=== PATIENT | male | born 1995 | race African-American/Black ===

== ENCOUNTER 2019-05-31 12:33 | Emergency (ER) | payer SELFPAY ==
--- NOTE | ~2019-05-31 | XR_ITS ---
EXAMINATION: XR hand RT min 3V DATE: 05/31/2019 13:09 INDICATION: Right hand pain and swelling. TECHNIQUE: 4 views of right hand were obtained. COMPARISON: None. FINDINGS: Bone alignment is normal. No fracture. There is mild osteoarthritis of fifth proximal inter phalangeal joint and second-fifth distal interphalangeal joints. IMPRESSION: 1. Mild polyarticular osteoarthritis. Reviewed, dictated and finalized at location A.
[2019-05-31 12:38] VITALS: BP 101/68; PULSE 63; RESP 18; TEMP 36.8; O2SAT 100
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
== END 2019-05-31 13:36 | disposition home or self-care (01) ==
PROVIDERS: Emergency Provider Nurse Practitioner Family
DX: M15.9 Polyosteoarthritis, unspecified (principal)
CPT/HCPCS: 73130; 99213; G0463

== ENCOUNTER 2019-08-09 12:47 | Emergency (ER) | payer SELFPAY ==
[2019-08-09 13:25] VITALS: BP 101/59; PULSE 69; RESP 20; TEMP 36.7; O2SAT 100
--- NOTE | 2019-08-09 13:53 | ED.GENADULT ---
HPI - General Adult General Chief complaint: Nausea/Vomiting/Diarrhea Stated complaint: vomiting,diarrhea Time Seen by Provider: 08/09/19 13:54 Source: patient and RN notes reviewed Mode of arrival: ambulatory Limitations: no limitations History of Present Illness HPI narrative: This is a 24 years old male presented office for a return to work note. He was sick with nauseous and diarrhea 2 days ago, he is not sure if he ate something wrong because he cannot came out from nowhere. So he called off and he can go back until he got a work note. Currently he is feeling fine; denies any other symptoms and he wants to go back to work. Related Data Home Medications Medication Instructions Recorded Confirmed No Home Medications 05/31/19 05/31/19 Allergies Allergy/AdvReac Type Severity Reaction Status Date / Time No Known Allergies Allergy Unknown Verified 02/16/19 19:00 Review of Systems Review of Systems: Narrative: CONSTITUTIONAL: Denies fever, chills, sweats. EYES: Denies visual changes ENT: Denies rhinorrhea, congestion, sore throat, otalgia. CARDIOVASCULAR: Denies chest pain, palpitation, edema. RESPIRATORY: Denies dyspnea, wheezing, cough GASTROINTESTINAL: Denies abdominal pain, nausea, vomiting, diarrhea. GENITOURINARY: Denies urinary symptoms or discharge SKIN: Denies rash MUSCULOSKELETAL: Reports chronic lower back pain NEUROLOGIC: Denies lightheaded PMFSH Family History Family History Other Diabetes mellitus Hypertension Social History Social History Smoking status: Never smoker Alcohol intake: never Gender identity (if verbalized by the patient): Male Comments At time of signature, I agree with nursing past medical, surgical, social and family history. There is no relevant family history pertinent to the presenting complaint. Exam Narrative: Exam Narrative: GENERAL: This is a well-nourished, well-developed patient, in no apparent distress. EYES: PERRL. Sclera clear/white. Vision is grossly intact. EARS: External ears normal, auditory canals clear and without drainage, TMs normal without perforation. Hearing grossly intact. NOSE: External nose normal with no obvious nasal discharge, nares without redness, no rhinorrhea. THROAT: Mucous membranes moist, posterior pharynx clear. NECK: Neck supple, non-tender without lymphadenopathy, masses or thyromegaly. CARDIOVASCULAR: Regular rate and rhythm without murmurs, gallops, or rubs. RESPIRATORY: Clear to auscultation. Breath sounds equal bilaterally. No wheezes, rales, or rhonchi. GASTROINTESTINAL: Abdomen soft, non-tender, nondistended. Bowel sounds are active. No hepato-splenomegaly, or palpable masses. No guarding. SKIN: warm, intact with no suspicious lesions or rash, good texture and turgor. NEURO: awake, alert, and oriented to person, place and time. There were no obvious focal neurologic abnormalities. Steady gait EXTREMITIES: Normal range of motion. BACK: Nontender without deformity or crepitance. No flank tenderness. Mariam Coma Scale Eye Opening: Spontaneous 4 Mariam Coma Scale Motor: Obeys Commands 6 Mariam Coma Scale Verbal: Oriented 5 Course Vital Signs Vital signs: Vital Signs Temperature 98.1 F 08/09/19 13:25 Pulse Rate 69 08/09/19 13:25 Respiratory Rate 20 08/09/19 13:25 Blood Pressure 101/59 L 08/09/19 13:25 Pulse Oximetry 100 08/09/19 13:25 Temperature 98.1 F 08/09/19 13:25 Pulse Rate 69 08/09/19 13:25 Respiratory Rate 20 08/09/19 13:25 Blood Pressure 101/59 L 08/09/19 13:25 Pulse Oximetry 100 08/09/19 13:25 Medical Decision Making MDM Narrative Medical decision making narrative: Discharge instructions reviewed with patient, as well as provided in writing per nursing staff. The instructions also include specific and strict return/GO TO THE ER as well as f/u informati
== END 2019-08-09 14:11 | disposition home or self-care (01) ==
PROVIDERS: Emergency Provider Nurse Practitioner
DX: R19.7 Diarrhea, unspecified (principal)
CPT/HCPCS: 99211; G0463